=== PATIENT | female | born 1990 | race Caucasian/White ===

== ENCOUNTER 2022-06-29 12:49 | Emergency (ER) | payer BC ==
[~2022-06-29] VITALS: Ht 152.4 cm; Wt 59.0 kg
--- NOTE | 2022-06-29 13:07 | NUR ---
BIB SELF FOR C/C ABD PAIN. A/O X 3
--- NOTE | 2022-06-29 13:12 | NUR ---
URINE SAMPLE OBTAINED
[2022-06-29] MEDS ORDERED: ONDANSETRON HCL/PF - ER 4 MG/2 ML VIAL IV ONE (13:30)
[2022-06-29] MEDS ORDERED: IV NS 0.9% 1,000 ML IV ONE (13:30)
[2022-06-29] MEDS ORDERED: KETOROLAC TROMETHAMINE INJ 30 MG/ML VIAL IV ONE (13:30)
[2022-06-29 13:32] LABS: BILIRUBIN,URINE NEGATIVE (NEGATIVE); COLOR,URINE YELLOW (YELLOW); LEUKOCYTE ESTERASE ,URINE NEGATIVE (NEGATIVE); NITRITE, URINE NEGATIVE (NEGATIVE); PROTEIN,URINE NEGATIVE (NEGATIVE); UGLUCOSE NEGATIVE (NEGATIVE); UROBILINOGEN,URINE 0.2 EU/dL (0.2)
--- NOTE | 2022-06-29 13:45 | NUR ---
BLOOD SAMPLES OBTAINED
[2022-06-29] MEDS ORDERED: KETOROLAC TROMETHAMINE 15 MG/ML VIAL ONE (13:48)
[2022-06-29] MEDS ORDERED: ONDANSETRON HCL/PF 4 MG/2 ML VIAL ONE (13:48)
[2022-06-29 13:54] LABS: BASOPHILS % (AUTO) 0.4 % (0.0-2.0); EOSINOPHILS % (AUTO) 1.5 % (0.0-6.0); HEMATOCRIT 32 % (33-45); HEMOGLOBIN 10.8 g/dL (11.5-14.8); LYMPHOCYTES # (AUTO) 2.4 K/uL (0.8-4.8); LYMPHOCYTES % (AUTO) 26.7 % (20.0-44.0); MEAN CORPUSCULAR HGB CONC 34 g/dl (31.0-36.0); MEAN CORPUSCULAR VOLUME 84 fL (82-100); MONOCYTES # (AUTO) 0.5 K/uL (0.1-1.30); NEUTROPHILS # (AUTO) 5.8 K/uL (1.8-8.9); NEUTROPHILS % (AUTO) 65.4 % (43.0-81.0); PLATELET COUNT (AUTO) 367 K/uL (150-450); RED BLOOD CELL COUNT(AUTO) 3.82 MIL/uL (4.0-5.2); WHITE BLOOD COUNT (AUTO) 8.9 K/uL (4.3-11.0)
[2022-06-29 14:10] LABS: ALBUMIN 3.5 g/dL (3.4-5.0); BILIRUBIN,DIRECT 0.1 mg/dL (0.0-0.2); BILIRUBIN,TOTAL 0.2 mg/dL (0.2-1.0); CREATININE 0.8 mg/dL (0.6-1.3); TOTAL PROTEIN, SERUM 7.2 g/dL (6.4-8.2)
[2022-06-29] MEDS ORDERED: IOHEXOL-300 100 ML VIAL IV ONE (14:54)
[2022-06-29] MEDS ORDERED: IV NS 0.9% 250 ML IV ONE (14:54)
[2022-06-29] MEDS ORDERED: IBUP-1953 PO (16:40)
[2022-06-29 17:07] VITALS: BP 118/88
--- NOTE | 2022-06-29 17:08 | NUR ---
Patient discharged to home in stable condition. Written and verbal after care instructions given. Patient verbalizes understanding of instruction.IV removed. Catheter intact and site benign. Pressure and 4x4 applied to site. No bleeding noted.
== END 2022-06-29 17:07 | disposition home or self-care (01) ==
LOC: ER 12:55
DX: R10.31 Right lower quadrant pain (principal)
CPT/HCPCS: 99285; 74177; 96374; 96361; 76856; 96375; 85025; 80048; 83690; 80076; 84703; 81003; 36415; J2405 ×2; J7030; J7050; Q9967; J1885

== ENCOUNTER 2022-07-02 06:12 | Emergency (ER) | payer BC ==
[~2022-07-02] VITALS: Ht 152.4 cm; Wt 59.0 kg
[~2022-07-02 06:12] MED LIST: IBUP-1953 PO
[2022-07-02] MEDS ORDERED: IBUPROFEN 600 MG TABLET ONE (06:42)
--- NOTE | 2022-07-02 06:45 | NUR ---
DR HERNANDES PAGED PER DR TRENT.
--- NOTE | 2022-07-02 06:52 | NUR ---
DR TRENT ON THE PHONE WITH DR HERNANDES.
[2022-07-02] MEDS: IBUPROFEN 600 MG TABLET PO ONE (06:56)
[2022-07-02 07:19] LABS: BASOPHILS % (AUTO) 0.3 % (0.0-2.0); EOSINOPHILS % (AUTO) 1.6 % (0.0-6.0); HEMATOCRIT 35 % (33-45); HEMOGLOBIN 11.6 g/dL (11.5-14.8); LYMPHOCYTES # (AUTO) 2.7 K/uL (0.8-4.8); LYMPHOCYTES % (AUTO) 32.9 % (20.0-44.0); MEAN CORPUSCULAR HGB CONC 33 g/dl (31.0-36.0); MEAN CORPUSCULAR VOLUME 86 fL (82-100); MONOCYTES # (AUTO) 0.4 K/uL (0.1-1.30); MONOCYTES % (AUTO) 5.3 % (2.0-12.0); NEUTROPHILS # (AUTO) 4.9 K/uL (1.8-8.9); NEUTROPHILS % (AUTO) 59.9 % (43.0-81.0); PLATELET COUNT (AUTO) 367 K/uL (150-450); RED BLOOD CELL COUNT(AUTO) 4.07 MIL/uL (4.0-5.2); WHITE BLOOD COUNT (AUTO) 8.2 K/uL (4.3-11.0)
[2022-07-02 07:38] LABS: CALCIUM, SERUM 9.2 mg/dL (8.5-10.1); CREATININE 0.9 mg/dL (0.6-1.3)
[2022-07-02 08:14] VITALS: BP 123/76
--- NOTE | 2022-07-02 08:14 | NUR ---
Patient discharged to home in stable condition. Written and verbal after care instructions given. Patient verbalizes understanding of instruction.
== END 2022-07-02 08:15 | disposition home or self-care (01) ==
LOC: ER 06:12
DX: N83.201 Unspecified ovarian cyst, right side (principal); Z79.899 Other long term (current) drug therapy
CPT/HCPCS: 36415; 76856-TC; 80048-TC; 85025-TC; 86850-TC